=== PATIENT | female | born 1940 | race Caucasian/White ===

== ENCOUNTER 2022-08-08 12:34 | Outpatient (CLI) | payer MEDICARE, BC, SELFPAY | END 2022-08-08 12:35 | disposition home or self-care (01) | LOC: WOUND 12:35 | PROVIDERS: PCP Family Medicine; Visit Provider Nurse Practitioner Family | DX: L89.513 Pressure ulcer of right ankle, stage 3 (principal); M62.3 Immobility syndrome (paraplegic); D53.9 Nutritional anemia, unspecified | CPT/HCPCS: 11042 ==

== ENCOUNTER 2022-08-29 13:01 | Outpatient (CLI) | payer MEDICARE, BC, SELFPAY | END 2022-08-29 13:02 | disposition home or self-care (01) | LOC: WOUND 13:01 | PROVIDERS: PCP Family Medicine; Visit Provider Family Medicine | DX: L89.514 Pressure ulcer of right ankle, stage 4 (principal); L89.891 Pressure ulcer of other site, stage 1; D53.9 Nutritional anemia, unspecified; M62.3 Immobility syndrome (paraplegic) | CPT/HCPCS: 11042; 11045; 97597 ==

== ENCOUNTER 2022-09-19 13:09 | Outpatient (CLI) | payer MEDICARE, BC, SELFPAY | END 2022-09-19 13:10 | disposition home or self-care (01) | LOC: WOUND 13:09 | PROVIDERS: PCP Family Medicine; Visit Provider Nurse Practitioner Family | DX: L89.614 Pressure ulcer of right heel, stage 4 (principal); M62.3 Immobility syndrome (paraplegic); D53.9 Nutritional anemia, unspecified | CPT/HCPCS: 11042 ==

== ENCOUNTER 2022-09-27 10:38 | Outpatient (CLI) | payer MEDICARE, BC, SELFPAY | END 2022-09-27 10:39 | disposition home or self-care (01) | LOC: WOUND 10:38 | PROVIDERS: PCP Family Medicine; Visit Provider Nurse Practitioner Family | DX: L89.614 Pressure ulcer of right heel, stage 4 (principal); M62.3 Immobility syndrome (paraplegic) | CPT/HCPCS: 11042 ==

== ENCOUNTER 2022-10-04 10:37 | Outpatient (CLI) | payer MEDICARE, BC, SELFPAY | END 2022-10-04 10:38 | disposition home or self-care (01) | LOC: WOUND 10:38 | PROVIDERS: PCP Family Medicine; Visit Provider Nurse Practitioner Family | DX: L89.514 Pressure ulcer of right ankle, stage 4 (principal); M62.3 Immobility syndrome (paraplegic) | CPT/HCPCS: 97597 ==

== ENCOUNTER 2022-10-11 13:01 | Outpatient (CLI) | payer MEDICARE, BC, SELFPAY | END 2022-10-11 13:02 | disposition home or self-care (01) | LOC: WOUND 13:01 | PROVIDERS: PCP Family Medicine; Visit Provider Nurse Practitioner Family | DX: L89.614 Pressure ulcer of right heel, stage 4 (principal); M62.3 Immobility syndrome (paraplegic); D53.9 Nutritional anemia, unspecified | CPT/HCPCS: 11042 ==

== ENCOUNTER 2022-10-25 12:59 | Outpatient (CLI) | payer MEDICARE, BC, SELFPAY | END 2022-10-25 13:00 | disposition home or self-care (01) | LOC: WOUND 12:59 | PROVIDERS: PCP Family Medicine; Visit Provider Nurse Practitioner Family | DX: L89.614 Pressure ulcer of right heel, stage 4 (principal); L84 Corns and callosities; M79.671 Pain in right foot | CPT/HCPCS: 11056 ==

== ENCOUNTER 2022-11-01 12:53 | Outpatient (CLI) | payer MEDICARE, MEDICAID, BC, SELFPAY | END 2022-11-01 12:54 | disposition home or self-care (01) | LOC: WOUND 12:54 | PROVIDERS: PCP Family Medicine; Visit Provider Nurse Practitioner Family | DX: L89.614 Pressure ulcer of right heel, stage 4 (principal); M62.3 Immobility syndrome (paraplegic); D53.9 Nutritional anemia, unspecified | CPT/HCPCS: 99212 ==

== ENCOUNTER 2022-11-21 09:56 | Outpatient (CLI) | payer MEDICARE, MEDICAID, BC, SELFPAY | END 2022-11-21 09:57 | disposition home or self-care (01) | LOC: WOUND 09:56 | PROVIDERS: PCP Family Medicine; Visit Provider Nurse Practitioner Family | DX: L89.893 Pressure ulcer of other site, stage 3 (principal); M62.3 Immobility syndrome (paraplegic); D53.9 Nutritional anemia, unspecified | CPT/HCPCS: 11042 ==

== ENCOUNTER 2022-11-29 12:50 | Outpatient (CLI) | payer MEDICARE, MEDICAID, BC, SELFPAY | END 2022-11-29 12:51 | disposition home or self-care (01) | LOC: WOUND 12:50 | PROVIDERS: PCP Family Medicine; Visit Provider Nurse Practitioner Family | DX: L89.893 Pressure ulcer of other site, stage 3 (principal); M62.3 Immobility syndrome (paraplegic); D53.9 Nutritional anemia, unspecified | CPT/HCPCS: 11042 ==

== ENCOUNTER 2022-12-06 12:56 | Outpatient (CLI) | payer MEDICARE, BC, MEDICAID, SELFPAY | END 2022-12-06 12:57 | disposition home or self-care (01) | LOC: WOUND 12:56 | PROVIDERS: PCP Family Medicine; Visit Provider Nurse Practitioner Family | DX: L89.893 Pressure ulcer of other site, stage 3 (principal); M62.3 Immobility syndrome (paraplegic) | CPT/HCPCS: 11042 ==

== ENCOUNTER 2022-12-13 12:43 | Outpatient (CLI) | payer MEDICARE, BC, MEDICAID, SELFPAY | END 2022-12-13 12:44 | disposition home or self-care (01) | LOC: WOUND 12:44 | PROVIDERS: PCP Family Medicine; Visit Provider Nurse Practitioner Family | DX: L89.893 Pressure ulcer of other site, stage 3 (principal); M62.3 Immobility syndrome (paraplegic) | CPT/HCPCS: 97597 ==

== ENCOUNTER 2022-12-20 12:40 | Outpatient (CLI) | payer MEDICARE, BC, MEDICAID, SELFPAY | END 2022-12-20 12:41 | disposition home or self-care (01) | LOC: WOUND 12:40 | PROVIDERS: PCP Family Medicine; Visit Provider Nurse Practitioner Family | DX: L89.893 Pressure ulcer of other site, stage 3 (principal); M62.3 Immobility syndrome (paraplegic) | CPT/HCPCS: 97597 ==

== ENCOUNTER 2022-12-27 12:41 | Outpatient (CLI) | payer MEDICARE, MEDICAID, BC, SELFPAY | END 2022-12-27 12:42 | disposition home or self-care (01) | LOC: WOUND 12:42 | PROVIDERS: PCP Family Medicine; Visit Provider Nurse Practitioner Family | DX: L89.893 Pressure ulcer of other site, stage 3 (principal); M62.3 Immobility syndrome (paraplegic) | CPT/HCPCS: 97597 ==

== ENCOUNTER 2023-01-03 12:36 | Outpatient (CLI) | payer MEDICARE, MEDICAID, BC, SELFPAY | END 2023-01-03 12:37 | disposition home or self-care (01) | LOC: WOUND 12:36 | PROVIDERS: PCP Family Medicine; Visit Provider Nurse Practitioner Family | DX: L89.893 Pressure ulcer of other site, stage 3 (principal); M62.3 Immobility syndrome (paraplegic); D53.9 Nutritional anemia, unspecified | CPT/HCPCS: 11042 ==

== ENCOUNTER 2023-01-10 12:38 | Outpatient (CLI) | payer MEDICARE, MEDICAID, BC, SELFPAY | END 2023-01-10 12:39 | disposition home or self-care (01) | LOC: WOUND 12:38 | PROVIDERS: PCP Family Medicine; Visit Provider Family Medicine | DX: L89.893 Pressure ulcer of other site, stage 3 (principal); M62.3 Immobility syndrome (paraplegic) | CPT/HCPCS: 97597 ==

== ENCOUNTER 2023-01-31 12:45 | Outpatient (CLI) | payer MEDICARE, BC, MEDICAID, SELFPAY | END 2023-01-31 12:46 | disposition home or self-care (01) | LOC: WOUND 12:46 | PROVIDERS: PCP Family Medicine; Visit Provider Nurse Practitioner Family | DX: L89.893 Pressure ulcer of other site, stage 3 (principal); M62.3 Immobility syndrome (paraplegic); D53.9 Nutritional anemia, unspecified | CPT/HCPCS: 99212 ==

== ENCOUNTER 2023-02-05 14:46 | Outpatient (CLI) | payer MEDICARE, BC, MEDICAID, SELFPAY ==
--- NOTE | 2023-02-05 15:00 | CRLHL7_ITS ---
For Patients: As a result of the Century Cures Act, medical imaging exams and procedure reports are released immediately into your electronic medical record. You may view this report before your referring provider. If you have questions, please contact your health care provider. INDICATION: Right leg swelling COMPARISON: None. TECHNIQUE: A compression venous ultrasound exam was performed of the right lower extremity using martinez-scale imaging, color Doppler and spectral Doppler analysis. FINDINGS: Sonographic imaging of the right lower extremity demonstrates normal compressibility and color Doppler venous blood flow within the common femoral vein, deep femoral vein, and the proximal greater saphenous vein. Within the thigh, the femoral vein is patent and compressible. At a lower level, the popliteal and posterior tibial veins also show normal compressibility and color Doppler venous blood flow. Limited imaging of the contralateral groin demonstrates a normal spectral waveform and color Doppler venous blood flow within the left common femoral vein. IMPRESSION: Normal venous ultrasound exam. No evidence of deep vein thrombosis within the right lower extremity. Dictated by Sascha Baez MD @ 02/05/2023 4:10:46 PM (Electronically Signed)
[2023-02-05 16:28] LABS: Basophils Absolute Auto 0.02 K/uL (0.00-0.30); Basophils Percent Auto 0.3 % (0.0-3.0); Eosinophils Absolute Auto 0.22 K/uL (0.00-0.50); Eosinophils Percent Auto 3.3 % (0.0-7.0); Hematocrit 37.2 % (33.0-51.0); Hemoglobin* 11.8 gm/dL (12.0-16.0); Immature Granulocytes Abs Auto 0.06 K/uL (0.00-0.30); Immature Granulocytes Pct Auto 0.9 %; Lymphocytes Absolute Auto 2.11 K/uL (0.90-2.90); Lymphocytes Percent Auto 31.3 % (20-44); Mean Corpuscular HGB Conc 32 gm/dL (32-36); Mean Corpuscular Hemoglobin 28 pg (26-34); Mean Corpuscular Volume 89 fL (80-100); Monocytes Percent Auto 10.1 % (0.0-11.0); Neutrophils Absolute Auto 3.65 K/uL (1.7-7.0); Neutrophils Percent Auto 54.1 % (42.0-72.0); Platelet Count* 292 K/uL (140-440); RDW Coefficient of Variation % 19.1 % (11.5-15.5); Red Blood Count 4.17 m/uL (4.00-5.20); White Blood Count* 6.74 K/uL (4.50-11.00)
[2023-02-05 16:42] LABS: Slide Review Reflex No
== END 2023-02-05 14:47 | disposition home or self-care (01) ==
LOC: US 14:47
PROVIDERS: PCP Family Medicine; Visit Provider Family Medicine
DX: R22.41 Localized swelling, mass and lump, right lower limb (principal); M79.89 Other specified soft tissue disorders
CPT/HCPCS: 36415; 85025; 86140; 93971

== ENCOUNTER 2023-02-21 12:55 | Outpatient (CLI) | payer MEDICARE, BC, MEDICAID, SELFPAY | END 2023-02-21 12:56 | disposition home or self-care (01) | LOC: WOUND 12:56 | PROVIDERS: PCP Family Medicine; Visit Provider Nurse Practitioner Family | DX: L89.893 Pressure ulcer of other site, stage 3 (principal); M62.3 Immobility syndrome (paraplegic) | CPT/HCPCS: 97597 ==

== ENCOUNTER 2023-02-28 14:33 | Outpatient (CLI) | payer MEDICARE, BC, MEDICAID, SELFPAY | END 2023-02-28 14:34 | disposition home or self-care (01) | LOC: WOUND 14:33 | PROVIDERS: PCP Family Medicine; Visit Provider Nurse Practitioner Family | DX: L89.893 Pressure ulcer of other site, stage 3 (principal); M62.3 Immobility syndrome (paraplegic); D53.9 Nutritional anemia, unspecified | CPT/HCPCS: G0463 ==

== ENCOUNTER 2023-03-07 13:25 | Outpatient (CLI) | payer MEDICARE, BC, MEDICAID, SELFPAY | END 2023-03-07 13:26 | disposition home or self-care (01) | LOC: WOUND 13:26 | PROVIDERS: PCP Family Medicine; Visit Provider Nurse Practitioner Family | DX: L89.893 Pressure ulcer of other site, stage 3 (principal); M62.3 Immobility syndrome (paraplegic) | CPT/HCPCS: G0463 ==

== ENCOUNTER 2023-03-28 12:51 | Outpatient (CLI) | payer MEDICARE, BC, MEDICAID, SELFPAY | END 2023-03-28 12:52 | disposition home or self-care (01) | LOC: WOUND 12:52 | PROVIDERS: PCP Family Medicine; Visit Provider Nurse Practitioner Family | DX: L89.893 Pressure ulcer of other site, stage 3 (principal); M62.3 Immobility syndrome (paraplegic) | CPT/HCPCS: G0463 ==

== ENCOUNTER 2023-05-23 12:47 | Outpatient (CLI) | payer MEDICARE, BC, MEDICAID, SELFPAY | END 2023-05-23 12:48 | disposition home or self-care (01) | LOC: WOUND 12:47 | PROVIDERS: PCP Family Medicine; Visit Provider Nurse Practitioner Family | DX: L89.629 Pressure ulcer of left heel, unspecified stage (principal); L89.893 Pressure ulcer of other site, stage 3; I89.0 Lymphedema, not elsewhere classified; M62.3 Immobility syndrome (paraplegic); D53.9 Nutritional anemia, unspecified; Z99.3 Dependence on wheelchair | CPT/HCPCS: 87070; 87186; 97597; G0463 ==

== ENCOUNTER 2023-05-30 12:39 | Outpatient (CLI) | payer MEDICARE, BC, MEDICAID, SELFPAY | END 2023-05-30 12:40 | disposition home or self-care (01) | LOC: WOUND 12:39 | PROVIDERS: PCP Family Medicine; Visit Provider Family Medicine | DX: L89.623 Pressure ulcer of left heel, stage 3 (principal); L89.893 Pressure ulcer of other site, stage 3; I89.0 Lymphedema, not elsewhere classified; M62.3 Immobility syndrome (paraplegic) | CPT/HCPCS: 11042 ==

== ENCOUNTER 2023-06-06 12:46 | Outpatient (CLI) | payer MEDICARE, BC, MEDICAID, SELFPAY | END 2023-06-06 12:47 | disposition home or self-care (01) | LOC: WOUND 12:46 | PROVIDERS: PCP Family Medicine; Visit Provider Nurse Practitioner Family | DX: L89.893 Pressure ulcer of other site, stage 3 (principal); L89.899 Pressure ulcer of other site, unspecified stage; M62.3 Immobility syndrome (paraplegic); I89.0 Lymphedema, not elsewhere classified | CPT/HCPCS: 97597 ==

== ENCOUNTER 2023-06-13 12:43 | Outpatient (CLI) | payer MEDICARE, BC, MEDICAID, SELFPAY | END 2023-06-13 12:44 | disposition home or self-care (01) | LOC: WOUND 12:43 | PROVIDERS: PCP Family Medicine; Visit Provider Nurse Practitioner Family | DX: L89.893 Pressure ulcer of other site, stage 3 (principal); L89.620 Pressure ulcer of left heel, unstageable; I89.0 Lymphedema, not elsewhere classified; M62.3 Immobility syndrome (paraplegic) | CPT/HCPCS: 11042; 97597 ==

== ENCOUNTER 2023-06-20 12:41 | Outpatient (CLI) | payer MEDICARE, BC, MEDICAID, SELFPAY | END 2023-06-20 12:42 | disposition home or self-care (01) | LOC: WOUND 12:42 | PROVIDERS: PCP Family Medicine; Visit Provider Nurse Practitioner Family | DX: L89.624 Pressure ulcer of left heel, stage 4 (principal); M62.3 Immobility syndrome (paraplegic); I89.0 Lymphedema, not elsewhere classified; D53.9 Nutritional anemia, unspecified | CPT/HCPCS: 11043 ==

== ENCOUNTER 2023-06-27 12:40 | Outpatient (CLI) | payer MEDICARE, BC, MEDICAID, SELFPAY | END 2023-06-27 12:41 | disposition home or self-care (01) | LOC: WOUND 12:41 | PROVIDERS: PCP Family Medicine; Visit Provider Nurse Practitioner Family | DX: L89.624 Pressure ulcer of left heel, stage 4 (principal); I89.0 Lymphedema, not elsewhere classified; M62.3 Immobility syndrome (paraplegic) | CPT/HCPCS: 97597 ==

== ENCOUNTER 2023-07-04 12:39 | Outpatient (CLI) | payer MEDICARE, BC, MEDICAID, SELFPAY | END 2023-07-04 12:40 | disposition home or self-care (01) | LOC: WOUND 12:39 | PROVIDERS: PCP Family Medicine; Visit Provider Nurse Practitioner Family | DX: L89.624 Pressure ulcer of left heel, stage 4 (principal); I89.0 Lymphedema, not elsewhere classified; M62.3 Immobility syndrome (paraplegic) | CPT/HCPCS: 11042 ==

== ENCOUNTER 2023-07-11 12:40 | Outpatient (CLI) | payer MEDICARE, BC, MEDICAID, SELFPAY | END 2023-07-11 12:41 | disposition home or self-care (01) | LOC: WOUND 12:41 | PROVIDERS: PCP Family Medicine; Visit Provider Nurse Practitioner Family | DX: L89.624 Pressure ulcer of left heel, stage 4 (principal); M62.3 Immobility syndrome (paraplegic); I89.0 Lymphedema, not elsewhere classified | CPT/HCPCS: 97597 ==

== ENCOUNTER 2023-07-18 12:44 | Outpatient (CLI) | payer MEDICARE, BC, MEDICAID, SELFPAY | END 2023-07-18 12:45 | disposition home or self-care (01) | LOC: WOUND 12:44 | PROVIDERS: PCP Family Medicine; Visit Provider Physician Assistant Surgical | DX: L89.624 Pressure ulcer of left heel, stage 4 (principal); I89.0 Lymphedema, not elsewhere classified; M62.3 Immobility syndrome (paraplegic) | CPT/HCPCS: 11042 ==

== ENCOUNTER 2023-07-25 12:45 | Outpatient (CLI) | payer MEDICARE, BC, MEDICAID, SELFPAY | END 2023-07-25 12:46 | disposition home or self-care (01) | LOC: WOUND 12:45 | PROVIDERS: PCP Family Medicine; Visit Provider Physician Assistant | DX: L89.624 Pressure ulcer of left heel, stage 4 (principal); L97.521 Non-pressure chronic ulcer of other part of left foot limited to breakdown of skin; M62.3 Immobility syndrome (paraplegic); I89.0 Lymphedema, not elsewhere classified | CPT/HCPCS: 97597 ==

== ENCOUNTER 2023-08-01 12:39 | Outpatient (CLI) | payer MEDICARE, BC, MEDICAID, SELFPAY | END 2023-08-01 12:40 | disposition home or self-care (01) | LOC: WOUND 12:40 | PROVIDERS: PCP Family Medicine; Visit Provider Nurse Practitioner Family | DX: L89.624 Pressure ulcer of left heel, stage 4 (principal); M62.3 Immobility syndrome (paraplegic); I89.0 Lymphedema, not elsewhere classified | CPT/HCPCS: 11042 ==

== ENCOUNTER 2023-08-08 12:45 | Outpatient (CLI) | payer MEDICARE, BC, MEDICAID, SELFPAY | END 2023-08-08 12:46 | disposition home or self-care (01) | LOC: WOUND 12:46 | PROVIDERS: PCP Family Medicine; Visit Provider Nurse Practitioner Family | DX: L89.624 Pressure ulcer of left heel, stage 4 (principal); I89.0 Lymphedema, not elsewhere classified; M62.3 Immobility syndrome (paraplegic) | CPT/HCPCS: 97597 ==

== ENCOUNTER 2023-08-15 12:46 | Outpatient (CLI) | payer MEDICARE, BC, MEDICAID, SELFPAY | END 2023-08-15 12:47 | disposition home or self-care (01) | LOC: WOUND 12:47 | PROVIDERS: PCP Family Medicine; Visit Provider Nurse Practitioner Family | DX: L89.624 Pressure ulcer of left heel, stage 4 (principal); D53.9 Nutritional anemia, unspecified; M62.3 Immobility syndrome (paraplegic) | CPT/HCPCS: 15275; Q4158 ==

== ENCOUNTER 2023-08-22 12:42 | Outpatient (CLI) | payer MEDICARE, BC, MEDICAID, SELFPAY | END 2023-08-22 12:43 | disposition home or self-care (01) | LOC: WOUND 12:43 | PROVIDERS: PCP Family Medicine; Visit Provider Physician Assistant | DX: L89.624 Pressure ulcer of left heel, stage 4 (principal); M62.3 Immobility syndrome (paraplegic); I89.0 Lymphedema, not elsewhere classified | CPT/HCPCS: 15275; Q4158 ==

== ENCOUNTER 2023-08-29 12:43 | Outpatient (CLI) | payer MEDICARE, BC, MEDICAID, SELFPAY | END 2023-08-29 12:44 | disposition home or self-care (01) | LOC: WOUND 12:43 | PROVIDERS: PCP Family Medicine; Visit Provider Nurse Practitioner Family | DX: L89.624 Pressure ulcer of left heel, stage 4 (principal); I89.0 Lymphedema, not elsewhere classified; M62.3 Immobility syndrome (paraplegic); Z99.3 Dependence on wheelchair | CPT/HCPCS: 97597 ==

== ENCOUNTER 2023-09-05 12:45 | Outpatient (CLI) | payer MEDICARE, BC, MEDICAID, SELFPAY | END 2023-09-05 12:46 | disposition home or self-care (01) | LOC: WOUND 12:45 | PROVIDERS: PCP Family Medicine; Visit Provider Nurse Practitioner Family | DX: L89.624 Pressure ulcer of left heel, stage 4 (principal); I89.0 Lymphedema, not elsewhere classified; M62.3 Immobility syndrome (paraplegic) | CPT/HCPCS: 11042 ==

== ENCOUNTER 2023-09-12 12:56 | Outpatient (CLI) | payer MEDICARE, BC, MEDICAID, SELFPAY | END 2023-09-12 12:57 | disposition home or self-care (01) | LOC: WOUND 12:56 | PROVIDERS: PCP Family Medicine; Visit Provider Nurse Practitioner Family | DX: L89.624 Pressure ulcer of left heel, stage 4 (principal); M62.3 Immobility syndrome (paraplegic); I89.0 Lymphedema, not elsewhere classified | CPT/HCPCS: 97597 ==

== ENCOUNTER 2023-09-19 12:46 | Outpatient (CLI) | payer MEDICARE, BC, MEDICAID, SELFPAY | END 2023-09-19 12:47 | disposition home or self-care (01) | LOC: WOUND 12:46 | PROVIDERS: PCP Family Medicine; Visit Provider Nurse Practitioner Family | DX: L89.624 Pressure ulcer of left heel, stage 4 (principal); M62.3 Immobility syndrome (paraplegic) | CPT/HCPCS: 97597 ==

== ENCOUNTER 2023-09-26 12:47 | Outpatient (CLI) | payer MEDICARE, BC, MEDICAID, SELFPAY | END 2023-09-26 12:48 | disposition home or self-care (01) | PROVIDERS: PCP Family Medicine; Visit Provider Nurse Practitioner Family | DX: L89.624 Pressure ulcer of left heel, stage 4 (principal); M62.3 Immobility syndrome (paraplegic) | CPT/HCPCS: 15271; 15275; Q4101 ==

== ENCOUNTER 2023-10-03 13:00 | Outpatient (CLI) | payer MEDICARE, BC, MEDICAID, SELFPAY | END 2023-10-03 13:01 | disposition home or self-care (01) | LOC: WOUND 10-07 11:52 | PROVIDERS: PCP Family Medicine; Visit Provider Nurse Practitioner Family | DX: L89.624 Pressure ulcer of left heel, stage 4 (principal); M62.3 Immobility syndrome (paraplegic); I89.0 Lymphedema, not elsewhere classified | CPT/HCPCS: G0463 ==

== ENCOUNTER 2023-10-10 12:54 | Outpatient (CLI) | payer MEDICARE, BC, MEDICAID, SELFPAY | END 2023-10-10 12:55 | disposition home or self-care (01) | LOC: WOUND 12:54 | PROVIDERS: PCP Family Medicine; Visit Provider Nurse Practitioner Family | DX: L89.524 Pressure ulcer of left ankle, stage 4 (principal); M62.3 Immobility syndrome (paraplegic) | CPT/HCPCS: G0463 ==

== ENCOUNTER 2023-10-17 08:11 | Outpatient (CLI) | payer MEDICARE, BC, MEDICAID, SELFPAY | END 2023-10-17 08:12 | disposition home or self-care (01) | LOC: WOUND 11-12 17:05 | PROVIDERS: PCP Family Medicine; Visit Provider Nurse Practitioner Family | DX: I89.0 Lymphedema, not elsewhere classified (principal); M62.3 Immobility syndrome (paraplegic); D53.9 Nutritional anemia, unspecified | CPT/HCPCS: G0463 ==

== ENCOUNTER 2023-10-31 12:51 | Outpatient (CLI) | payer MEDICARE, BC, MEDICAID, SELFPAY | END 2023-10-31 12:52 | disposition home or self-care (01) | LOC: WOUND 12:51 | PROVIDERS: PCP Family Medicine; Visit Provider Nurse Practitioner Family | DX: I89.0 Lymphedema, not elsewhere classified (principal); M62.3 Immobility syndrome (paraplegic); Z87.2 Personal history of diseases of the skin and subcutaneous tissue | CPT/HCPCS: G0463 ==